=== PATIENT | male | born 1955 | race Caucasian/White ===

== ENCOUNTER 2018-06-25 17:43 | Observation (INO) ==
[2018-06-25 19:01] LABS: Basophils % 0.6 % (0.0-0.8); Eosinophils # 0.1 10*3/uL (0.0-0.87); Eosinophils % 1.7 % (0.00-10.9); Hematocrit 44.4 VOL% (42.0-52.0); Hemoglobin 14.9 GM/DL (14.0-18.0); Immature Granulocytes % 0.5 %; Immature Granulocytes Absolute 0.03 #; Lymphocytes # 1.7 10*3/uL (1.4-4.0); Lymphocytes % 26.8 % (21.2-54.2); Mean Corpuscular HGB Conc 33.6 GM/DL (32-36); Mean Corpuscular Hemoglobin 29 PG (27-34); Mean Corpuscular Volume 87.6 FL (87-102); Mean Platelet Volume 10.3 FL (9.6-12.0); Monocytes # 0.6 10*3/uL (0.11-0.8); Monocytes % 9.1 % (1.7-12.7); Neutrophils # 3.9 10*3/uL (1.4-7.4); Neutrophils % 61.3 % (38.7-73.9); Platelet Count 158 T/CUMM (130-400); Red Blood Count 5.07 MC/CUMM (3.8-5.5); Red Cell Distribution Width 13.3 % (9.3-17.3); White Blood Count 6.4 T/CUMM (4-12)
[2018-06-25 19:18] LABS: Albumin 3.9 G/DL (3.4-5.0); Bilirubin,Total 0.4 MG/DL (0.2-1.0); Osmolality,Calculated 275.7 MOS/KG (273-304); Potassium 4.3 MMOL/L (3.5-5.1); Total Protein 7.2 G/DL (6.4-8.3)
[2018-06-25] MEDS ORDERED: ZALEPLON 5 MG CAPSULE PO PRN (20:57)
[2018-06-25] MEDS ORDERED: PROMETHAZINE 25 MG/1 ML VIAL IM PRN (20:57)
[2018-06-25] MEDS ORDERED: ONDANSETRON 4 MG/2 ML VIAL IV PRN (20:57)
[2018-06-25] MEDS ORDERED: MORPHINE 4 MG/1 ML VIAL IV PRN (20:57)
[2018-06-25] MEDS ORDERED: ENOXAPARIN 40 MG/0.4 ML SYRINGE SUBCUT SCH (21:00)
[2018-06-25] MEDS ORDERED: ATORVASTATIN 20 MG TABLET PO SCH (21:30)
[2018-06-25] MEDS: CARVEDILOL 6.25 MG TABLET PO SCH (22:13)
[2018-06-25 22:26] LABS: VLDL CHOLESTEROL 46.2 MG/DL
[2018-06-26] MEDS ORDERED: ASPIRIN EC 81 MG TABLET PO SCH (09:00)
[2018-06-26] MEDS: VITAMIN E 200 UNIT CAPSULE PO SCH (09:25)
[2018-06-26] MEDS: CYANOCOBALAMIN 500 MCG TABLET PO SCH (09:25)
[2018-06-26] MEDS: MULTIVITAMIN (CENTRUM) TABLET PO SCH (09:25)
[2018-06-26] MEDS: NIACIN 500 MG TABLET PO SCH (09:26)
[2018-06-26] MEDS: PANTOPRAZOLE 40 MG TABLET PO SCH (09:26)
[2018-06-26] MEDS: CARVEDILOL 6.25 MG TABLET PO SCH ×2 (09:26→17:02)
[2018-06-26] MEDS ORDERED: MAGNESIUM SULF RIDER 2 GM in PREMIX 1 EACH IV PRN (12:23)
[2018-06-26] MEDS ORDERED: diphenhydrAMINE CAP 25 MG CAPSULE PO ONE (12:23)
[2018-06-26] MEDS ORDERED: POTASSIUM CHLORIDE RIDER 10 MEQ in PREMIX 1 EACH IV PRN (12:23)
[2018-06-26] MEDS ORDERED: DIAZEPAM 5 MG TABLET PO ONE (12:23)
[2018-06-26] MEDS: SODIUM CHLORIDE 0.9% 1,000 ML IV SCH ×2 (12:46→20:09)
[2018-06-26] MEDS ORDERED: LIDOCAINE 1% 20 ML VIAL ONE (17:00)
[2018-06-26] MEDS ORDERED: NITROGLYCERIN DRIP 50 MG/250 ML BOTTLE IV ONE (17:00)
[2018-06-26] MEDS ORDERED: MIDAZOLAM 2 MG/2 ML VIAL ONE ×2 (17:00→17:29)
[2018-06-26] MEDS ORDERED: fentaNYL 100 MCG/2 ML VIAL ONE (17:01)
[2018-06-26] MEDS ORDERED: VERAPAMIL 5 MG/2 ML VIAL ONE (17:01)
[2018-06-26] MEDS ORDERED: ENOXAPARIN 30 MG/0.3 ML SYRINGE ONE (17:19)
[2018-06-26] MEDS ORDERED: TICAGRELOR 90 MG TABLET ONE (17:46)
[2018-06-26] MEDS ORDERED: TIROFIBAN 5,000 MCG/100 ML PREMIX IV ONE (17:51)
[2018-06-26] MEDS ORDERED: TIROFIBAN 5,000 MCG/100 ML PREMIX IV SCH (18:00)
[2018-06-26] MEDS: TICAGRELOR 90 MG TABLET PO SCH (20:07)
[2018-06-26] MEDS ORDERED: ATORVASTATIN 40 MG TABLET PO SCH (21:00)
[2018-06-27] MEDS: SODIUM CHLORIDE 0.9% 1,000 ML IV SCH (03:55)
[2018-06-27 04:00] LABS: Basophils % 0.5 % (0.0-0.8); Eosinophils # 0.1 10*3/uL (0.0-0.87); Eosinophils % 1.4 % (0.00-10.9); Hematocrit 42.8 VOL% (42.0-52.0); Immature Granulocytes % 0.5 %; Immature Granulocytes Absolute 0.03 #; Lymphocytes # 1.3 10*3/uL (1.4-4.0); Lymphocytes % 23.3 % (21.2-54.2); Mean Corpuscular HGB Conc 32.7 GM/DL (32-36); Mean Corpuscular Hemoglobin 29 PG (27-34); Mean Corpuscular Volume 88.4 FL (87-102); Mean Platelet Volume 10.2 FL (9.6-12.0); Monocytes # 0.6 10*3/uL (0.11-0.8); Neutrophils # 3.7 10*3/uL (1.4-7.4); Neutrophils % 64.3 % (38.7-73.9); Platelet Count 128 T/CUMM (130-400); Red Blood Count 4.84 MC/CUMM (3.8-5.5); Red Cell Distribution Width 13.2 % (9.3-17.3); White Blood Count 5.7 T/CUMM (4-12)
[2018-06-27 04:31] LABS: Blood Urea Nitrogen 19 MG/DL (7-18); Calcium 8.2 MG/DL (8.5-10.1); Glucose 86 MG/DL (74-106); Osmolality,Calculated 277.5 MOS/KG (273-304); Potassium 3.9 MMOL/L (3.5-5.1); Sodium 139 MMOL/L (136-145); Troponin I 0.026 NG/ML (0.00-0.045)
[2018-06-27 08:13] VITALS: BP 126/71
[2018-06-27] MEDS: CYANOCOBALAMIN 500 MCG TABLET PO SCH (08:27)
[2018-06-27] MEDS: TICAGRELOR 90 MG TABLET PO SCH (08:27)
[2018-06-27] MEDS: VITAMIN E 200 UNIT CAPSULE PO SCH (08:27)
[2018-06-27] MEDS: CARVEDILOL 6.25 MG TABLET PO SCH (08:27)
[2018-06-27] MEDS: PANTOPRAZOLE 40 MG TABLET PO SCH (08:27)
[2018-06-27] MEDS: MULTIVITAMIN (CENTRUM) TABLET PO SCH (08:27)
[2018-06-27] MEDS: NIACIN 500 MG TABLET PO SCH (08:27)
[2018-06-27] MEDS ORDERED: ASPIRIN EC 81 MG TABLET PO SCH (09:00)
== END 2018-06-27 13:25 | disposition home or self-care (01) ==
LOC: N.EDINP 17:43 → N.ED 17:43 → N.TELES 21:45
PROVIDERS: ADMIT Internal Medicine; ATTEND Internal Medicine
PROC: CLCCHCL (ICD-10-PCS; 2018-06-26 18:15)

== ENCOUNTER 2021-04-14 06:03 | Observation (INO) ==
[2021-04-14] MEDS ORDERED: HYDROmorphone 2 MG/1 ML VIAL IV STA ×2 (06:33→08:38)
[2021-04-14] MEDS ORDERED: SODIUM CHLORIDE 0.9% 1,000 ML IV STA (06:33)
[2021-04-14] MEDS ORDERED: ONDANSETRON 4 MG/2 ML VIAL IV STA (06:33)
[2021-04-14 07:11] LABS: Basophils % 0.3 % (0.0-0.8); Eosinophils % 0.2 % (0.00-10.9); Hematocrit 44.5 VOL% (42.0-52.0); Hemoglobin 14.8 GM/DL (14.0-18.0); Immature Granulocytes % 0.4 %; Immature Granulocytes Absolute 0.04 #; Lymphocytes # 1.1 10*3/uL (1.4-4.0); Lymphocytes % 10.6 % (21.2-54.2); Mean Corpuscular HGB Conc 33.3 GM/DL (32-36); Mean Corpuscular Volume 87.8 FL (87-102); Mean Platelet Volume 9.4 FL (9.6-12.0); Monocytes % 3.8 % (1.7-12.7); Neutrophils % 84.7 % (38.7-73.9); Platelet Count 196 T/CUMM (130-400); Red Blood Count 5.07 MC/CUMM (3.8-5.5); Red Cell Distribution Width 14.9 % (9.3-17.3); White Blood Count 9.9 T/CUMM (4-12)
[2021-04-14 07:30] LABS: Alanine Aminotransferase 36 U/L (16-61); Albumin 4.1 G/DL (3.4-5.0); Alkaline Phosphatase 62 U/L (45-117); Aspartate Amino Transferase 19 U/L (0-37); Blood Urea Nitrogen 20 MG/DL (7-18); Calcium 9.1 MG/DL (8.5-10.1); Carbon Dioxide 27 MMOL/L (21-32); Estimated Glom Filtration Rate 113 ML/MIN; Glucose 178 MG/DL (74-106); Osmolality,Calculated 279.8 MOS/KG (273-304); Potassium 4.2 MMOL/L (3.5-5.1); Sodium 137 MMOL/L (136-145); Total Protein 7.9 G/DL (6.4-8.2)
[2021-04-14] MEDS ORDERED: HYDROmorphone 2 MG/1 ML VIAL IV PRN ×2 (09:36→10:31)
[2021-04-14] MEDS ORDERED: ONDANSETRON 4 MG/2 ML VIAL IV PRN ×2 (09:36→10:31)
[2021-04-14] MEDS ORDERED: LACTATED RINGERS 1,000 ML IV SCH (10:00)
[2021-04-14] MEDS ORDERED: PROMETHAZINE 25 MG/1 ML VIAL IM PRN (10:31)
[2021-04-14] MEDS ORDERED: KETOROLAC 15 MG/1 ML VIAL IV PRN (10:31)
[2021-04-14] MEDS ORDERED: ACETAMINOPHEN 325 MG TABLET PO PRN (10:31)
[2021-04-14] MEDS: LACTATED RINGERS 1,000 ML IV SCH ×2 (10:55→18:42)
[2021-04-14] MEDS ORDERED: KETOROLAC 30 MG/1 ML VIAL IV PRN (11:30)
[2021-04-14] MEDS ORDERED: hydrALAZINE 20 MG/1 ML VIAL IV PRN (16:22)
[2021-04-14] MEDS: carvediloL 6.25 MG TABLET PO SCH (20:35)
[2021-04-14] MEDS ORDERED: ATORVASTATIN 40 MG TABLET PO SCH (21:00)
[2021-04-15] MEDS: LACTATED RINGERS 1,000 ML IV SCH (02:19)
[2021-04-15] MEDS ORDERED: ENOXAPARIN 40 MG/0.4 ML SYRINGE SUBCUT SCH ×2 (04:00→04:30)
[2021-04-15 05:38] LABS: Basophils % 0.3 % (0.0-0.8); Eosinophils # 0.2 10*3/uL (0.0-0.87); Eosinophils % 2.9 % (0.00-10.9); Hematocrit 38.1 VOL% (42.0-52.0); Hemoglobin 12.6 GM/DL (14.0-18.0); Immature Granulocytes % 0.3 %; Immature Granulocytes Absolute 0.02 #; Lymphocytes # 1.7 10*3/uL (1.4-4.0); Lymphocytes % 29.3 % (21.2-54.2); Mean Corpuscular HGB Conc 33.1 GM/DL (32-36); Mean Corpuscular Volume 90.9 FL (87-102); Mean Platelet Volume 9.6 FL (9.6-12.0); Neutrophils % 58.2 % (38.7-73.9); Platelet Count 144 T/CUMM (130-400); Red Blood Count 4.19 MC/CUMM (3.8-5.5); Red Cell Distribution Width 14.9 % (9.3-17.3); White Blood Count 5.9 T/CUMM (4-12)
[2021-04-15 06:04] LABS: Calcium 8.5 MG/DL (8.5-10.1); Osmolality,Calculated 280.4 MOS/KG (273-304)
[2021-04-15] MEDS: carvediloL 6.25 MG TABLET PO SCH (08:35)
[2021-04-15] MEDS ORDERED: PANTOPRAZOLE 40 MG TABLET PO SCH (09:00)
[2021-04-15] MEDS ORDERED: MULTIVITAMIN (CENTRUM) TABLET PO SCH (09:00)
[2021-04-15] MEDS ORDERED: ASPIRIN EC 81 MG TABLET PO SCH (09:00)
[2021-04-15] MEDS ORDERED: INFLUENZA VIRUS VACCINE 0.5 ML SYRINGE IM ONE (11:37)
[2021-04-15 14:10] VITALS: BP 143/81
== END 2021-04-15 12:00 | disposition home or self-care (01) ==
LOC: N.ED 06:03 → INTOOBSV 09:36 → N.EDINP 09:36 → N.3E 10:34
PROVIDERS: ADMIT Surgery; ATTEND Surgery

== ENCOUNTER 2021-12-26 05:54 | Observation (INO) ==
[2021-12-26 06:31] LABS: Basophils % 0.7 % (0.0-0.8); Eosinophils # 0.2 10*3/uL (0.0-0.87); Immature Granulocytes % 0.4 %; Immature Granulocytes Absolute 0.02 #; Lymphocytes # 1.6 10*3/uL (1.4-4.0); Lymphocytes % 28.6 % (21.2-54.2); Mean Corpuscular HGB Conc 34.1 GM/DL (32-36); Mean Corpuscular Volume 87.4 FL (87-102); Mean Platelet Volume 10.4 FL (9.6-12.0); Monocytes # 0.5 10*3/uL (0.11-0.8); Neutrophils % 57.3 % (38.7-73.9); Platelet Count 199 T/CUMM (130-400); Red Blood Count 4.69 MC/CUMM (3.8-5.5); White Blood Count 5.4 T/CUMM (4-12)
[2021-12-26 07:11] LABS: Albumin 3.8 G/DL (3.4-5.0); Bilirubin,Total 0.6 MG/DL (0.20-1.00); Calcium 9.2 MG/DL (8.5-10.1); Potassium 4.5 MMOL/L (3.5-5.1); Total Protein 7.2 G/DL (6.4-8.2)
[2021-12-26] MEDS ORDERED: ACETAMINOPHEN 325 MG TABLET PO PRN (10:03)
[2021-12-26] MEDS ORDERED: ALUMINUM/MAGNES/SIMETH MAX STR 30 ML UDCUP PO PRN (10:03)
[2021-12-26] MEDS ORDERED: LACTULOSE 20 GM/30 ML UDCUP PO PRN (10:03)
[2021-12-26] MEDS ORDERED: BISACODYL 5 MG TABLET PO PRN (10:03)
[2021-12-26] MEDS ORDERED: CALCIUM CARBONATE CHEW 500 MG TABLET PO PRN (10:03)
[2021-12-26] MEDS ORDERED: ZALEPLON 5 MG CAPSULE PO PRN (10:03)
[2021-12-26] MEDS ORDERED: ONDANSETRON 4 MG/2 ML VIAL IV PRN (10:03)
[2021-12-26] MEDS ORDERED: SIMETHICONE CHEW 125 MG TABLET PO PRN (10:03)
[2021-12-26] MEDS ORDERED: MORPHINE 2 MG/1 ML SYRINGE IV PRN (10:03)
[2021-12-26] MEDS ORDERED: diphenhydrAMINE CAP 50 MG CAPSULE PO ONE (10:42)
[2021-12-26] MEDS ORDERED: DIAZEPAM 5 MG TABLET PO ONE (10:42)
[2021-12-26] MEDS ORDERED: HEPARIN/NACL 0.9% 2 UNITS/ML 2,000 UNIT/1,000 ML BAG IV ONE (10:51)
[2021-12-26] MEDS ORDERED: SODIUM CHLORIDE 0.9% 1,000 ML IV SCH (11:00)
[2021-12-26] MEDS: ENOXAPARIN 40 MG/0.4 ML SYRINGE SUBCUT SCH (11:04)
[2021-12-26] MEDS ORDERED: MIDAZOLAM 2 MG/2 ML VIAL ONE (11:14)
[2021-12-26] MEDS ORDERED: HYDROmorphone 1 MG/1 ML SYRINGE ONE ×2 (11:14→11:54)
[2021-12-26] MEDS ORDERED: HEPARIN 5,000 UNIT/1 ML VIAL ONE (12:12)
[2021-12-26] MEDS ORDERED: ATORVASTATIN 40 MG TABLET PO SCH (21:00)
[2021-12-26] MEDS ORDERED: lisinopriL 5 MG TABLET PO SCH (21:00)
[2021-12-26] MEDS: carvediloL 6.25 MG TABLET PO SCH (21:32)
[2021-12-27 04:25] LABS: Basophils % 0.7 % (0.0-0.8); Eosinophils # 0.1 10*3/uL (0.0-0.87); Eosinophils % 1.7 % (0.00-10.9); Hematocrit 38.6 VOL% (42.0-52.0); Immature Granulocytes % 0.3 %; Immature Granulocytes Absolute 0.02 #; Lymphocytes # 1.4 10*3/uL (1.4-4.0); Lymphocytes % 24.2 % (21.2-54.2); Mean Corpuscular HGB Conc 33.7 GM/DL (32-36); Mean Corpuscular Volume 88.7 FL (87-102); Mean Platelet Volume 9.6 FL (9.6-12.0); Monocytes # 0.5 10*3/uL (0.11-0.8); Monocytes % 9.2 % (1.7-12.7); Neutrophils % 63.9 % (38.7-73.9); Platelet Count 154 T/CUMM (130-400); Red Blood Count 4.35 MC/CUMM (3.8-5.5); Red Cell Distribution Width 13.6 % (9.3-17.3); White Blood Count 5.7 T/CUMM (4-12)
[2021-12-27 04:51] LABS: Calcium 8.8 MG/DL (8.5-10.1); Osmolality,Calculated 275.7 MOS/KG (273-304); Risk Ratio 2.96; VLDL Cholesterol 34.6 MG/DL
[2021-12-27 08:19] VITALS: BP 113/67
[2021-12-27] MEDS: carvediloL 6.25 MG TABLET PO SCH (08:38)
[2021-12-27] MEDS: ENOXAPARIN 40 MG/0.4 ML SYRINGE SUBCUT SCH (08:38)
[2021-12-27] MEDS ORDERED: ASPIRIN EC 81 MG TABLET PO SCH (09:00)
[2021-12-27] MEDS ORDERED: PANTOPRAZOLE 40 MG TABLET PO SCH (09:00)
== END 2021-12-27 09:12 | disposition home or self-care (01) ==
LOC: N.TELES 05:54 → N.ED 05:54 → N.TELES 11:06
PROVIDERS: ADMIT Internal Medicine Cardiovascular Disease; ATTEND Internal Medicine Cardiovascular Disease
PROC: CLCCHCL (ICD-10-PCS; 2021-12-26 11:45)